=== PATIENT | male | born 1985 | race Caucasian/White ===

== ENCOUNTER 2020-01-28 16:00 | Emergency (ER) | payer MEDICAID ==
[~2020-01-28] VITALS: Ht 182.9 cm; Wt 93.2 kg
[2020-01-28] MEDS ORDERED: HYDROCODONE/ACETAMINOPHEN 5-325 MG TABLET PO ONE (18:30)
[2020-01-28 18:53] VITALS: BP 116/92
== END 2020-01-28 20:32 | disposition home or self-care (01) ==
LOC: EMS 16:00
DX: S52.612A Displaced fracture of left ulna styloid process, initial encounter for closed fracture (principal); S52.572A Other intraarticular fracture of lower end of left radius, initial encounter for closed fracture; V19.9XXA Pedal cyclist (driver) (passenger) injured in unspecified traffic accident, initial encounter; Y93.55 Activity, bike riding; Y92.488 Other paved roadways as the place of occurrence of the external cause; Y99.8 Other external cause status
CPT/HCPCS: 73060-TC; 73090-TC; 73110-TC; Z7502; Z7610